=== PATIENT | female | born 1930 ===

== ENCOUNTER 2016-12-04 11:46 | Inpatient (IN) | payer MEDICARE, BC ==
[2016-12-04] MEDS ORDERED: hydrALAZINE IV* 20 MG/ML VIAL IV SLOW PU ONE (13:24)
[2016-12-04] MEDS ORDERED: Ondansetron INJ* 2 MG/ML VIAL IV PRN (13:39)
[2016-12-04] MEDS ORDERED: Acetaminophen TAB* 325 MG PO PRN (13:39)
[2016-12-04] MEDS ORDERED: hydrALAZINE IV* 20 MG/ML VIAL IV SLOW PU PRN (13:49)
--- NOTE | 2016-12-04 18:48 | CONS ---
CONSULTATION REPORT: DATE OF CONSULTATION: 12/04/16 PATIENT OF: Dr. Trimble. HISTORY OF PRESENT ILLNESS: This is an 86-year-old right-handed woman who has new onset of aphasia secondary to a hemorrhagic bleed. She lives in the [facility] for dementia and she can talk and interact, but is forgetful and confused at times, which waxes and wanes and carries a diagnosis of Alzheimer's. Her speech is noted to be more garbled and hesitant than usual with some increased confusion at about 8:15 this morning and she was brought in to the [facility] ER where workup showed a left thalamic bleed and she was transferred to [facility] for further care. PAST MEDICAL HISTORY: Her other medical problem includes longstanding hypertension. PAST SURGICAL HISTORY: No recent surgeries. MEDICATIONS: Include: 1. Aricept 10 mg a day. 2. Metoprolol XL 50 mg daily. 3. Zoloft 25 mg daily. 4. Remeron 7.5 at night. ALLERGIES: She has no known allergies. FAMILY HISTORY: There is no family history for CIPHER EXPERT bleeds. She has been on aspirin at home but this has been stopped. There is no other blood thinner and she has had no known atrial fibrillation before today. They do not know of any other family history for hemorrhagic bleed. REVIEW OF SYSTEMS: She has had some sundowning at her home. She has had some recent hip pain. Negative in all 14 spheres according to the daughter. She has been in recent good health. PHYSICAL EXAMINATION: On exam, temperature 98.9, pulse 73, respirations 40. Blood pressure currently 160/84, when she came in, it was 218/110. She was alert. She thought her birthday was 1937. She did not know her age or where she was. She had general confusion and did not know that one of her friends had and then began thinking about whether the friend's marriage was in trouble, which it had not been. There was a sort of confusional tangential thinking with some hesitancy and some slight word finding difficulty. Much of this was new, although she has a baseline level of confusion. There was trace right-sided facial asymmetry. Rest of cranial nerves II through XII were normal with sharp discs. Motor exam revealed normal tone and strength. There was no pronator drift. Sensation was intact to light touch. Reflexes were 1 and equal. Toes were downgoing. Sensation was grossly intact to light touch. Chest: Clear. Cardiovascular: Regular rate and rhythm. Abdomen soft with positive bowel sounds. DIAGNOSTIC STUDIES/LABORATORY DATA: EKG showed atrial fibrillation, which is a new finding. I reviewed her CT scan, which showed a small left thalamic bleed measured by the radiologist at 1.8 x 1.6 x 1.0 with some mild edema as well. There is significant periventricular and subcortical attenuation most likely secondary to chronic small vessel ischemic disease. Her CBC was normal with normal platelets. INR was normal. Her CMP was normal other than creatinine of 1.1, glucose of 126. IMPRESSION: Megan has a left thalamic bleed possibly secondary to chronic hypertension in the setting of somebody who has longstanding hypertension and evidence on brain CT of small vessel ischemic disease to a probably significant degree. At this time, there is no intervention that is needed neurosurgically and the aspirin has been stopped and she will be observed closely. I discussed that if the bleed got vigorous, it is possible there could be complications including an obstructive hydrocephalus. The daughter at this point would proceed with a REPACKER shunt if it looked like once the acute problem is corrected, the mother would return to close to her baseline and the daughter knows that there are no promises that this would actually happen, but that if we thought there was a decent possibility that depending on the size of the bleed and other factors that the bleed would resolve and that there would be possibly no long-term deficits more than what she has already, that she would proceed with surgery even though there is a DNR in place. If the bleed became a major bleed , she would not be inclined to pursue surgery and she noted this is her initial thinking and she is talking to other family members. At this point, the bleed does not look like a primary ischemic stroke that bled into, but a primarily hemorrhagic stroke. By its location, I do not think that this is likely to be due to an underlying vascular malformation. The daughter would not want to pursue this at this point to look for surgery to fix or address that type of issue; however, as things proceed, we can revisit whether the family would want studies to look for underlying vascular abnormalities. Thank you for sharing her case. [id number]/[facility] #: [id number] AMPARO
--- NOTE | 2016-12-04 18:56 | HP ---
CC: CYNTHIA Torrez * HISTORY AND PHYSICAL: DATE OF ADMISSION: 12/04/16 PRIMARY CARE PROVIDER: CYNTHIA Torrez. CHIEF COMPLAINT: Slurred speech. HISTORY OF PRESENT ILLNESS: Ms. Menchaca is an 86-year-old female who currently is unable to provide any meaningful history due to expressive aphasia, dysarthria, and dementia. The history is obtained from the ER provider at [facility], who spoke with staff at [facility]. The patient, reportedly, at approximately 7:30 a.m., was felt to be normal. At approximately 8:30 a.m. on the day of admission she was found in the parlor after she missed breakfast. At that point she was noted to have slurred speech and perhaps not moving her limbs right and could not walk. She was assisted back to her room and given a meal tray, but did not eat it. The symptoms continued and, therefore, the aide arranged for the patient to be brought to the emergency room by private vehicle. Reportedly, as the patient was leaving [facility], she was improving and seemed to be happy and waved at everybody on her way out. The staff at [facility] indicated that the patient has a history of attention seeking behaviors and it was felt that perhaps that was what was going on this morning. The patient was dropped off in the waiting room of [facility] ER. The import clerk noted that the patient had slurred speech and called a stroke protocol. The patient was brought back immediately where she was noted to be A and O x3, with slurred speech. She was able to get out of the wheelchair by herself and ambulate easily to the bed and climb in. She underwent a CT scan of the brain, which revealed a 1.8 cm left thalamic hemorrhagic infarct. PAST MEDICAL HISTORY: 1. Hypertension. 2. Alzheimer's dementia. PAST SURGICAL HISTORY: Unknown. MEDICATIONS: 1. Imodium 4 mg p.o. q.4 hours p.r.n. loose stool. 2. Guaifenesin 10 mL p.o. q.4 hours p.r.n. cough. 3. MOM 30 mL p.o. daily p.r.n. constipation. 4. Mylanta 30 mL p.o. q.4 hours p.r.n. indigestion. 5. Tylenol 500 mg p.o. q.4 hours p.r.n. pain. 6. Donepezil 10 mg p.o. at bedtime. 7. Aspirin 81 mg p.o. daily. 8. Sertraline 25 mg p.o. daily. 9. Remeron 7.5 mg p.o. at bedtime. 10. Metoprolol XL 50 mg p.o. daily. ALLERGIES: No known drug allergies. FAMILY HISTORY: Unobtainable from the patient due to her dementia. SOCIAL HISTORY: The patient resides at [facility]. Her daughter, Ling, is listed as her healthcare proxy. REVIEW OF SYSTEMS: Unobtainable from the patient due to her dementia, expressive aphasia, and dysarthria. PHYSICAL EXAMINATION GENERAL: The patient is a well-developed elderly female, sitting up in the stretcher, in no acute distress. VITAL SIGNS: Blood pressure 218/110, pulse 73, respirations 14, temp 98.9, O2 sat 100% on room air. HEENT: Pupils are equal. Extraocular muscles are intact. Oropharynx is clear. Oral mucosa is moist. There is no submandibular, cervical or supraclavicular adenopathy. NECK: Thyroid is not enlarged. No thyroid nodules are noted. PULMONARY: Lungs are clear to auscultation bilaterally though she does have wheezing noted at rest. CARDIAC: Normal S1, S2. Heart rate is irregularly irregular, but controlled. ABDOMEN: Bowel sounds present. Abdomen is soft, nontender, nondistended. EXTREMITIES: There is no lower extremity edema. MUSCULOSKELETAL: There is no cyanosis or clubbing of the digits. There is full active range of motion of all 4 extremities. NEUROLOGIC: Cranial nerves II through XII appear to be grossly intact. Sensation is intact to light touch throughout. Strength is 5/5 and symmetric in upper and lower extremities bilaterally. She is dysarthric and appears to have at least moderate expressive aphasia. Additionally, she seems confused. SKIN: Warm and dry. There are no rashes. PSYCH: The patient is alert. DIAGNOSTIC STUDIES/LAB DATA: CT brain reveals a 1.8 cm left thalamic acute hemorrhagic CVA with indentation of the third ventricle. EKG reveals atrial fibrillation with controlled rate. ASSESSMENT AND PLAN: Ms. Menchaca is an 86-year-old female with a known history of hypertension and Alzheimer's dementia, who presented to the [facility] with complaints of slurred speech and found to have an acute hemorrhagic left thalamic CVA. 1. Acute hemorrhagic left thalamic CVA: This is likely on the basis of the patient's chronic hypertension. She had been on an aspirin daily at home. This will obviously be discontinued at this point. The patient will be seen by the Neurology. I did speak with Dr. Lind, who reviewed the images and did not feel that the patient warranted any neurosurgical intervention at this time. The patient will have neuro checks every 2 hours. She could be at risk for developing hydrocephalus if the edema relates to the bleed or the bleed itself worsens leading to further compression of the third ventricle. The patient will have PT, OT, and Speech Therapy ordered as well. It is unclear at this point if the patient will be able to return back to [facility]. A repeat CT scan will be obtained tomorrow morning to ensure that there is no significant progression of her bleed or edema. 2. Atrial fibrillation. This appears to be a new diagnosis for the patient. She is controlled. She takes metoprolol at home. She obviously cannot go on an anticoagulant at this point and likely she is too high risk to ever be on an anticoagulant related to her AFib. 3. Hypertension. The patient's blood pressure is uncontrolled at this point. She will have p.r.n. hydralazine for systolic blood pressures greater than 170. She will continue on her usual dose of metoprolol and likely will need to add another agent to get her blood pressure under improved control. 4. DVT prophylaxis. According to the Adult Thrombosis Prophylaxis Risk Factor Assessment Guide, the patient has a total risk factor score of 3, making her high risk. SCDs alone will be utilized as DVT prophylaxis given her acute hemorrhagic CVA. 5. Code status is DNR and the patient's daughter, Ling, is her healthcare proxy. TIME SPENT: Sixty-five minutes were spent admitting this patient. [id number]/[facility] #: [id number] AMPARO
[2016-12-04] MEDS: Donepezil TAB* 5 MG PO SCH (21:22)
[2016-12-04] MEDS: Mirtazapine TAB* 15 MG PO SCH (21:23)
[2016-12-05 06:00] LABS: Comments Flag Yes; Hematocrit 30 % (35-47); Hemoglobin 8.9 g/dl (12.0-16.0); Mean Corpuscular HGB Conc 30 g/dl (31-36); Mean Corpuscular Hemoglobin 19 pg (27-31); Mean Corpuscular Volume 63 fL (80-97); Mean Platelet Volume 9 um3 (7.4-10.4); Red Blood Count 4.79 10^6/ul (4.0-5.4); Red Cell Distribution Width 20 % (10.5-15); White Blood Count 6.2 10^3/ul (3.5-10.8)
[2016-12-05 06:29] LABS: BUN/Creatinine Ratio 20.6 (8-20); Calcium 8.9 mg/dL (8.6-10.3); EGFR African American 66.4 (>60); EGFR Non-African American 51.6 (>60)
[2016-12-05] MEDS ORDERED: Influenza VAC *QUAD* 2017-18* 0.5 ML SYRINGE IM ONE (09:00)
--- NOTE | 2016-12-05 09:17 | RAD ---
Indication: Follow-up thalamic hemorrhage. CT brain was performed without IV contrast and compared to previous exam dated December 04, 2016. Again noted is a hyperdense mass in the left thalamus consistent with thalamic hemorrhage. Adjacent edema is noted. The overall size of the hemorrhage is not significantly changed. Periventricular signal abnormality consistent with chronic ischemic changes. Mastoid air cells and paranasal sinuses are otherwise unremarkable. IMPRESSION: Left thalamic hemorrhage unchanged from previous exam of December 04, 2016.
[2016-12-05] MEDS: Sertraline* 25 MG TAB PO SCH (10:19)
[2016-12-05] MEDS: Metoprolol Succinate XL TAB* 50 MG PO SCH (10:20)
--- NOTE | 2016-12-05 13:59 | PN ---
Subjective Date of Service: 12/05/16 Interval History: Pt is feeling ok but has noted to be agitated this afternoon. The patient is unable to give any reliable information. Objective Active Medications: Acetaminophen (Tylenol Tab*) 650 mg PO Q4H PRN PRN Reason: PAIN Donepezil HCl (Aricept Tab*) 10 mg PO BEDTIME [facility] Last Admin: 12/04/16 21:22 Dose: 10 mg Hydralazine HCl (Apresoline Iv*) 5 mg IV SLOW PU Q6H PRN PRN Reason: SBP>170 Metoprolol Succinate (Toprol Xl Tab*) 50 mg PO DAILY [facility] Last Admin: 12/05/16 10:20 Dose: 50 mg Mirtazapine (Remeron Tab*) 7.5 mg PO BEDTIME [facility] Last Admin: 12/04/16 21:23 Dose: 7.5 mg Ondansetron HCl (Zofran Inj*) 4 mg IV Q6H PRN PRN Reason: NAUSEA Sertraline HCl (Zoloft*) 25 mg PO DAILY [facility] Last Admin: 12/05/16 10:19 Dose: 25 mg Vital Signs 12/04/16 12/04/16 12/04/16 14:23 15:43 19:30 Temperature 98.5 F Pulse Rate 80 Respiratory 16 34 Rate Blood Pressure 160/84 146/58 (mmHg) O2 Sat by Pulse 99 Oximetry 12/04/16 12/04/16 12/05/16 19:32 23:44 03:28 Temperature 98.6 F 98.3 F 98.6 F Pulse Rate 76 79 80 Respiratory 20 40 24 Rate Blood Pressure 160/80 154/65 143/71 (mmHg) O2 Sat by Pulse 97 95 96 Oximetry 12/05/16 12/05/16 12/05/16 07:37 08:00 11:33 Temperature 97.7 F 98.4 F Pulse Rate 63 69 Respiratory 20 24 20 Rate Blood Pressure 146/58 169/65 (mmHg) O2 Sat by Pulse 94 98 Oximetry 12/05/16 13:45 Temperature 98.3 F Pulse Rate 92 Respiratory 32 Rate Blood Pressure 186/83 (mmHg) O2 Sat by Pulse Oximetry Oxygen Devices in Use Now: None Appearance: Elderly female sitting on the edge of the bed, agitated about a medicine cup on her table. Eyes: No Scleral Icterus Ears/Nose/Mouth/Throat: Mucous Membranes Moist Respiratory: Symmetrical Chest Expansion and Respiratory Effort, Clear to Auscultation Cardiovascular: NL Sounds; No Murmurs; No JVD, No Edema, - - irregularly irregular, controlled rate Abdominal: NL Sounds; No Tenderness; No Distention Extremities: No Clubbing, Cyanosis Skin: No Rash or Ulcers, No Nodules or Sclerosis Neurological: - - confused, agtiated, + expressive aphasia and mild dysarthria Result Diagrams: 12/05/16 05:33 12/05/16 05:33 Assess/Plan/Problems-Billing Ms Menchaca is an 86 yo F who has a h/o HTN and dementia who presented to the ER at [facility] with c/o dysarthria and 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 - Patient Problems (1) Hemorrhagic cerebrovascular accident (CVA) Current Visit: Yes Status: Acute Code(s): I61.9 - NONTRAUMATIC INTRACEREBRAL HEMORRHAGE, UNSPECIFIED SNOMED Code(s): 096623313 Comment: The patient has a L thalamic hemorrhagic CVA. Unchanged on CT this AM. Her expressive aphasia seems worse today but she also seems more confused- possibly with delirium. I think she is going to need STR and not be able to return to the [facility] from this hospitalization. Continue PT/OT/speech. No ASA. Will aim for improved BP control. (2) HTN (hypertension) Current Visit: Yes Status: Acute Code(s): I10 - ESSENTIAL (PRIMARY) HYPERTENSION SNOMED Code(s): 49185050 Comment: BP needs improved control. Will add amlodipine 5mg daily. Monitor the pressures. (3) Afib Current Visit: Yes Status: Acute Code(s): I48.91 - UNSPECIFIED ATRIAL FIBRILLATION SNOMED Code(s): 07906905 Comment: Pt remains in controlled afib. No anticoagulation or ASA given the ICH. (4) Dementia Current Visit: Yes Status: Acute Code(s): F03.90 - UNSPECIFIED DEMENTIA WITHOUT BEHAVIORAL DISTURBANCE SNOMED Code(s): 00028495 Comment: I suspect the patient has some delirium currently given her agitation. Will trial low dose haldol. (5) DVT prophylaxis Current Visit: Yes Status: Acute Code(s): SQN8299 - SNOMED Code(s): 711369831 Comment: SCDs/ambulation (6) DNR (do not resuscitate) Current Visit: Yes Status: Acute
[2016-12-05] MEDS ORDERED: Haloperidol INJ IV/IM* 5 MG/ML AMP IV SLOW PU PRN (14:15)
[2016-12-05] MEDS ORDERED: amLODIPine TAB* 5 MG PO SCH (15:00)
--- NOTE | 2016-12-05 16:13 | RAD ---
Indication: Fever, aspiration. Single frontal view of the chest performed at 1606 hours was reviewed. No prior study is available. No mediastinal shift is noted. Cardiomegaly is noted. Lung guerrero are clear. IMPRESSION: NO ACTIVE CARDIOPULMONARY DISEASE IS NOTED.
--- NOTE | 2016-12-05 17:37 | RAD ---
Indication: Hemorrhagic CVA. Comparison: [address] of the same date. Technique: Noncontrast CT vertex of skull through foramen magnum. Report: Unchanged 1.9 cm maximum dimension intra-axial hemorrhage at the LEFT thalamus with mild mass effect on the third ventricle without change. No new intra or extra-axial hemorrhage evident. Mild prominence of the cerebral sulci and ventricles reflecting atrophy. Patent basal cisterns. Decreased density in the periventricular and subcortical white matter while non-specific is most likely due to chronic microangiopathy. Negative for fracture or suspicious focal calvarial or skull base lesion. Clear visualized paranasal sinuses and mastoid air spaces. Negative for scalp hematoma. IMPRESSION: 1. Unchanged hyperdense intra-axial hematoma at the LEFT thalamus with mild mass effect on the third ventricle. Negative for resulting hydrocephalus. 2. Mild involutional change and stigmata of chronic small vessel ischemic disease.
--- NOTE | 2016-12-05 18:49 | PN ---
NEUROLOGIC FOLLOWUP NOTE: DATE OF FOLLOWUP/DICTATION: 12/05/16 PATIENT OF: Dr. Tribmle. HISTORY: She is unable to give any acute history since she remains quite confused with changes documented in history. MEDICATIONS: Her medications are unchanged, include: 1. Zoloft 25 mg daily. 2. Remeron 7.5 mg at bedtime. 3. Toprol 50 mg daily. 4. Aricept 10 mg at bedtime. There has been no clinical changes. Temperature 98.4, pulse 69, respirations 20 , blood pressure 169/65. She is alert, but says she is 29 today. She does not know where she is. She tends to perseverate after I asked her age, she said 29 and then was talking about other numbers, random thoughts. She did not answer questions appropriately, but with nonsensical statements. She could sporadically follow one- step commands. She had a slight pronator drift on the right side today and when I asked her to squeeze both hands, I needed to coax her and repeat the request, but she tended to do it more readily on the left than the right and there may have been some mild, possibly trace weakness in the right raftsman. Cranial nerves II through XII were intact. Strength in legs appeared full, but she had limited cooperation due to her comprehension. Chest clear. Cardiovascular: Regular rate and rhythm. Abdomen is soft with positive bowel sounds. LABORATORY DATA: I reviewed her repeat CT scan today, which shows the left thalamic bleed, but without any change in size and no change in ventricular size. Her CBC today was normal other than a hematocrit of 30. Her BMP was normal today other than a creatinine of 1.02 and a glucose of 101. Megan' left thalamic bleed has remained stable since yesterday and this is a good sign clinically. From my evaluation today, her speech and comprehension is decreased compared to yesterday. There may be some fluctuations throughout the day or it may be that there is a little bit of associated swelling not well seen on CT scan associated with the bleed that she is a little bit worse, but overall that there is no major changes in the CAT scan is reassuring. It would be important to make sure her home would still be able to take care of somebody who will be at least for several weeks more confused, with more limited speech than before and if not, to make appropriate placement. I would also follow up her CAT scan in a couple of days' time to make sure there is no interval change and sooner for problems. Thank you for sharing her case. [id number]/[facility] #: [id number] AMPARO
[2016-12-05] MEDS ORDERED: NS 0.9% 1000 ML* 1,000 ML IV SCH (19:00)
[2016-12-05] MEDS ORDERED: Zosyn per Pharmacy* NOTE FOLLOW UP SCH (19:00)
--- NOTE | 2016-12-05 19:47 | RAD ---
Indication: Altered mental status. No longer verbally responding. Hemorrhagic CVA. Comparison: 1626 hours exam of the same date. Technique: Noncontrast CT vertex of skull through foramen magnum. Report: Unchanged 1.9 cm maximum dimension intra-axial hemorrhage at the LEFT thalamus with mild mass effect on the third ventricle without change. No new intra or extra-axial hemorrhage evident. Mild prominence of the cerebral sulci and ventricles reflecting atrophy. Patent basal cisterns. Decreased density in the periventricular and subcortical white matter while non-specific is most likely due to chronic microangiopathy. Negative for fracture or suspicious focal calvarial or skull base lesion. Clear visualized paranasal sinuses and mastoid air spaces. Negative for scalp hematoma. IMPRESSION: 1. Unchanged hyperdense intra-axial hematoma at the LEFT thalamus with mild mass effect on the third ventricle. Negative for resulting hydrocephalus. 2. Mild involutional change and stigmata of chronic small vessel ischemic disease.
[2016-12-05 19:51] LABS: Hematocrit 33 % (35-47); Hemoglobin 9.7 g/dl (12.0-16.0); Mean Corpuscular HGB Conc 29 g/dl (31-36); Mean Corpuscular Hemoglobin 19 pg (27-31); Mean Platelet Volume 8 um3 (7.4-10.4); Red Blood Count 5.22 10^6/ul (4.0-5.4); Red Cell Distribution Width 20 % (10.5-15); White Blood Count 9.8 10^3/ul (3.5-10.8)
[2016-12-05 20:04] LABS: Comments Flag Yes; Mean Corpuscular Volume 64 fL (80-97)
[2016-12-05 20:05] LABS: BUN/Creatinine Ratio 17.5 (8-20); EGFR African American 65.7 (>60); EGFR Non-African American 51.1 (>60); Potassium 4.6 mmol/L (3.5-5.0)
[2016-12-05] MEDS ORDERED: Acetaminophen SUPP* 650 MG SUPP PR PRN (20:57)
[2016-12-05] MEDS: Mirtazapine TAB* 15 MG PO SCH (21:03)
[2016-12-05] MEDS: Donepezil TAB* 5 MG PO SCH (21:03)
[2016-12-05 23:43] LABS: Urine Bacteria Absent (Absent); Urine Bilirubin Negative (Negative); Urine Glucose Negative (Negative); Urine Nitrite Negative (Negative)
[2016-12-06] MEDS: ZOSYN 3.375 GM Q8H per EXTENDED INFUSION IVPB SCH ×6 (00:06→17:28)
--- NOTE | 2016-12-06 07:51 | PN ---
Subjective Date of Service: 12/06/16 Interval History: Events from last evening and night noted. This AM the patient awakened to me calling her name. She stated yes to wanting a drink when I asked her if she was thirsty. She waved to her daughter and son-in-law who were present in the room this AM. She said no to being in pain. She kept pointing to my shirt and trying to say something but was unable to make herself clear. Objective Active Medications: Acetaminophen (Tylenol Tab*) 650 mg PO Q4H PRN PRN Reason: PAIN Acetaminophen (Tylenol Supp*) 650 mg PA Q4H PRN PRN Reason: FEVER/PAIN Last Admin: 12/05/16 23:12 Dose: 650 mg Amlodipine Besylate (Norvasc Tab*) 5 mg PO DAILY [facility] Last Admin: 12/05/16 14:25 Dose: 5 mg Donepezil HCl (Aricept Tab*) 10 mg PO BEDTIME [facility] Last Admin: 12/05/16 21:03 Dose: Not Given Hydralazine HCl (Apresoline Iv*) 5 mg IV SLOW PU Q6H PRN PRN Reason: SBP>170 Sodium Chloride (Ns 0.9% 1000 Ml*) 1,000 mls @ 100 mls/hr IV PER RATE [facility] Last Admin: 12/05/16 20:00 Dose: 100 mls/hr Piperacillin Sod/Tazobactam (Sod 3.375 gm/ Sodium Chloride) 100 mls @ 25 mls/ hr IVPB Q8H [facility] Last Admin: 12/06/16 00:06 Dose: 25 mls/hr Metoprolol Succinate (Toprol Xl Tab*) 50 mg PO DAILY [facility] Last Admin: 12/05/16 10:20 Dose: 50 mg Mirtazapine (Remeron Tab*) 7.5 mg PO BEDTIME [facility] Last Admin: 12/05/16 21:03 Dose: Not Given Ondansetron HCl (Zofran Inj*) 4 mg IV Q6H PRN PRN Reason: NAUSEA Last Admin: 12/05/16 15:26 Dose: 4 mg Pharmacy Consult (Zosyn Per Pharmacy*) 1 note FOLLOW UP .ZOSYN PER PHARMACY [facility] Sertraline HCl (Zoloft*) 25 mg PO DAILY [facility] Last Admin: 12/05/16 10:19 Dose: 25 mg Vital Signs 09/06/17 09/06/17 09/06/17 08:00 11:33 13:45 Temperature 98.4 F 98.3 F Pulse Rate 69 92 Respiratory 24 20 32 Rate Blood Pressure 169/65 186/83 (mmHg) O2 Sat by Pulse 98 Oximetry 12/05/16 12/05/16 12/05/16 15:26 20:00 20:14 Temperature 101.1 F 101.7 F Pulse Rate 108 98 Respiratory 16 20 20 Rate Blood Pressure 166/95 139/51 (mmHg) O2 Sat by Pulse 92 87 Oximetry 12/05/16 12/06/16 23:37 03:07 Temperature 100.1 F 98.6 F Pulse Rate 84 71 Respiratory 24 28 Rate Blood Pressure 130/43 106/40 (mmHg) O2 Sat by Pulse 99 99 Oximetry Oxygen Devices in Use Now: Nasal Cannula - 2L Appearance: Elderly female sleeping in bed, awakens to me calling her name, NAD Eyes: No Scleral Icterus Ears/Nose/Mouth/Throat: Mucous Membranes Moist Respiratory: Symmetrical Chest Expansion and Respiratory Effort, - - bibasilar crackles Cardiovascular: NL Sounds; No Murmurs; No JVD, No Edema, - - irregularly irregular, controlled rate Abdominal: NL Sounds; No Tenderness; No Distention Extremities: No Clubbing, Cyanosis Skin: No Rash or Ulcers, No Nodules or Sclerosis Neurological: - - + significant expressive aphasia and mild-moderate dysarthria , moves all 4 limbs Result Diagrams: 12/05/16 19:35 12/05/16 19:35 Assess/Plan/Problems-Billing Ms Menchaca is an 86 yo F who has a h/o HTN and dementia who presented to the ER at [facility] with c/o dysarthria and 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 - Patient Problems (1) Hemorrhagic cerebrovascular accident (CVA) Current Visit: Yes Status: Acute Code(s): I61.9 - NONTRAUMATIC INTRACEREBRAL HEMORRHAGE, UNSPECIFIED SNOMED Code(s): 442039709 Comment: The patient has a L thalamic hemorrhagic CVA. Yesterday the patient' s mental status changed significantly. She ended up having 4 CTs in about 24hr due to concerns of worsening bleed/development of hydrocephalus. Last evening the patient was unresponsive to anything other deep sternal rub. This AM her mental status is much improved and she is much less agitated than she was yesterday at the time of my evaluation. Continue PT/OT/speech. She will likely need STR-if she worsens again consider palliative care. I have discussed my concerns and recommendations with the patient's daughter. (2) HTN (hypertension) Current Visit: Yes Status: Acute Code(s): I10 - ESSENTIAL (PRIMARY) HYPERTENSION SNOMED Code(s): 91052105 Comment: BP this AM is low normal. I will put hold parameters on the amlodipine started yesterday. Will continue to follow. (3) Afib Current Visit: Yes Status: Acute Code(s): I48.91 - UNSPECIFIED ATRIAL FIBRILLATION SNOMED Code(s): 25735905 Comment: Pt remains in controlled afib. No anticoagulation or ASA given the ICH. (4) Dementia Current Visit: Yes Status: Acute Code(s): F03.90 - UNSPECIFIED DEMENTIA WITHOUT BEHAVIORAL DISTURBANCE SNOMED Code(s): 37553661 Comment: Continue aricept. She seems much less agitated today. Continue to monitor. (5) DVT prophylaxis Current Visit: Yes Status: Acute Code(s): THK7831 - SNOMED Code(s): 978830993 Comment: SCDs/ambulation (6) DNR (do not resuscitate) Current Visit: Yes Status: Acute
--- NOTE | 2016-12-06 08:13 | RAD ---
INDICATION: Altered mental status. COMPARISON: Comparison is made with prior studies from December 05, 2016. TECHNIQUE: Contiguous axial sections of the brain were obtained from the skull base to the vertex without contrast. FINDINGS: The ventricles, cisterns and sulci are enlarged consistent with diffuse atrophy. There are multiple focal areas of decreased density in the subcortical and periventricular white matter suggestive of moderate to severe chronic small vessel ischemic changes. Again note is made of a focal area of hemorrhage present within the left thalamus measuring 1.7 x 1.5 cm in size which is unchanged from the prior exam. This causes mild mass effect on the third ventricle. No hydrocephalus is seen. No significant focal osseous abnormality is seen. The visualized portion of the paranasal sinuses and mastoid air cells appear clear. IMPRESSION: 1.7 CM AREA OF HEMORRHAGE IN THE LEFT THALAMUS WITH MILD MASS EFFECT, UNCHANGED.
[2016-12-06] MEDS: amLODIPine TAB* 5 MG PO SCH (08:59)
[2016-12-06] MEDS: Metoprolol Succinate XL TAB* 50 MG PO SCH (09:05)
[2016-12-06] MEDS: Sertraline* 25 MG TAB PO SCH (09:05)
[2016-12-06] MEDS: NS 0.9% 1000 ML* 1,000 ML IV SCH (10:58)
[2016-12-06] MEDS: Mirtazapine TAB* 15 MG PO SCH (21:02)
[2016-12-06] MEDS: Donepezil TAB* 5 MG PO SCH (21:02)
[2016-12-07] MEDS: ZOSYN 3.375 GM Q8H per EXTENDED INFUSION IVPB SCH ×4 (00:05→08:04)
[2016-12-07] MEDS: NS 0.9% 1000 ML* 1,000 ML IV SCH (02:54)
[2016-12-07] MEDS: Metoprolol Succinate XL TAB* 50 MG PO SCH (08:02)
[2016-12-07] MEDS: amLODIPine TAB* 5 MG PO SCH (08:03)
[2016-12-07] MEDS: Sertraline* 25 MG TAB PO SCH (08:03)
--- NOTE | 2016-12-07 11:16 | PN ---
Subjective Date of Service: 12/07/16 Interval History: Ms. Menchaca denies complaint today. She specifically denies chest pain, SOB, nausea, or abdominal pain. Objective Active Medications: Acetaminophen (Tylenol Tab*) 650 mg PO Q4H PRN Acetaminophen (Tylenol Supp*) 650 mg MS Q4H PRN Amlodipine Besylate (Norvasc Tab*) 5 mg PO DAILY [facility] Donepezil HCl (Aricept Tab*) 10 mg PO BEDTIME [facility] Hydralazine HCl (Apresoline Iv*) 5 mg IV SLOW PU Q6H PRN Sodium Chloride (Ns 0.9% 1000 Ml*) 1,000 mls @ 60 mls/hr IV PER RATE [facility] Metoprolol Succinate (Toprol Xl Tab*) 50 mg PO DAILY [facility] Mirtazapine (Remeron Tab*) 7.5 mg PO BEDTIME [facility] Ondansetron HCl (Zofran Inj*) 4 mg IV Q6H PRN Pharmacy Consult (Zosyn Per Pharmacy*) 1 note FOLLOW UP .ZOSYN PER PHARMACY [facility] Sertraline HCl (Zoloft*) 25 mg PO DAILY [facility] Vital Signs 12/06/16 12/06/16 12/06/16 11:24 15:44 19:42 Temperature 97.9 F 97.9 F 97.9 F Pulse Rate 67 73 73 Respiratory 18 19 19 Rate Blood Pressure 106/38 120/56 132/59 (mmHg) O2 Sat by Pulse 100 98 99 Oximetry 12/06/16 12/07/16 12/07/16 20:00 00:17 03:48 Temperature 99.7 F 98.7 F Pulse Rate 80 87 Respiratory 36 32 32 Rate Blood Pressure 133/56 138/56 (mmHg) O2 Sat by Pulse 97 100 Oximetry 12/07/16 12/07/16 07:19 07:41 Temperature 97.7 F Pulse Rate 63 Respiratory 18 28 Rate Blood Pressure 130/71 (mmHg) O2 Sat by Pulse 100 Oximetry Oxygen Devices in Use Now: None - 2L Appearance: Female lying in bed in NAD Eyes: No Scleral Icterus Ears/Nose/Mouth/Throat: Mucous Membranes Moist Neck: Trachea Midline Respiratory: Symmetrical Chest Expansion and Respiratory Effort, Clear to Auscultation Cardiovascular: NL Sounds; No Murmurs; No JVD, No Edema Abdominal: NL Sounds; No Tenderness; No Distention Lymphatic: No Cervical Adenopathy Extremities: No Edema Skin: No Rash or Ulcers Neurological: Alert and Oriented x 3, - - Weak but equal strength in all extremities Nutrition: Taking PO's Result Diagrams: 12/05/16 19:35 12/05/16 19:35 Microbiology and Other Data: Microbiology 12/05/16 23:30 Urine Culture - Final Urine No Growth (<1,000 CFU/mL) 12/05/16 19:35 Aerobic Blood Culture - Preliminary No Source Provided No Growth Day 1 Anaerobic Blood Culture - Preliminary No Growth Day 1 Assess/Plan/Problems-Billing Ms Menchaca is an 86 yo F who has a h/o HTN and dementia who presented to the ER at [place] [facility] with c/o dysarthria and 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 - Patient Problems (1) Hemorrhagic cerebrovascular accident (CVA) Comment: - Patient remains alert today. She has had a L thalamic hemorrhagic CVA. On 12/04 the patient's mental status changed significantly. She ended up having 4 CTs in about 24hr due to concerns of worsening bleed/development of hydrocephalus. However, her mental status improved as of yesterday. - Continue PT/OT/speech. Plan for STR. (2) Dementia Comment: Continue aricept. Continue to monitor. (3) Afib Comment: Pt remains in controlled afib. No anticoagulation or ASA given the ICH. (4) HTN (hypertension) Comment: BP this AM is low normal. I will put hold parameters on the amlodipine started yesterday. Will continue to follow. (5) DVT prophylaxis Comment: SCDs/ambulation (6) DNR (do not resuscitate) Status and Disposition: Inpatient. Discharge to [facility].
[2016-12-07 11:34] VITALS: BP 117/37
--- NOTE | 2016-12-07 13:58 | DS ---
CC: CYNTHIA Torrez.* HOSPITAL MEDICINE DISCHARGE SUMMARY: DATE OF ADMISSION: 12/04/16 DATE OF DISCHARGE: 12/07/16 PRIMARY CARE PHYSICIAN: CYNTHIA Torrez. ATTENDING PHYSICIAN: Dr. Lorelei Trimble* (dictation provided by Brenda Yin NP) . PRIMARY DIAGNOSIS: Left thalamic hemorrhagic cerebrovascular accident. SECONDARY DIAGNOSES: 1. Hypertension. 2. Alzheimer's dementia. MEDICATIONS AT THE TIME OF DISCHARGE: 1. Imodium 4 mg p.o. q. 4 hours p.r.n. 2. Guaifenesin 10 mL p.o. q. 4 hours p.r.n. 3. Milk of magnesia 30 mL p.o. daily p.r.n. 4. Mylanta 30 mL p.o. q. 4 hours p.r.n. 5. Tylenol 500 mg p.o. q. 4 hours p.r.n. 6. Donepezil 10 mg p.o. at bedtime. 7. Sertraline 25 mg p.o. daily. 8. Remeron 7.5 mg p.o. at bedtime. 9. Metoprolol XL 50 mg p.o. daily. HOSPITAL COURSE: Ms. Menchaca is an 86-year-old female with a past medical history of dementia, who resides at the [facility] and was transported from [facility] on 12/04/16 after having slurred speech and being found to have a 1.8-cm left thalamic hemorrhagic infarct. Please see dictated H and P from Lorelei Trimble DO, for complete details. In brief, the patient was noted to have slurred speech and inability to walk. Again CT determined that she had an acute hemorrhagic left thalamic CVA. Ms. Menchaca was admitted to the hospital. She was seen in consultation with Dr. Conner Ann from Neurology. There was no neurosurgical intervention indicated. Plans were to discontinue aspirin and to observe closely. The patient had a follow up CT on 12/05/16, which showed unchanged hematoma on the left thalamus. Through the day on 12/05/16, patient became agitated with altered mental status. She ultimately underwent 2 additional CTs of the brain. The first one in the evening on 12/05/16 again showed no change in the hematoma and the repeat one branch mechanic 12/06/16 again showed no change. On 12/06/16, the patient's mental status has returned back to her baseline. She continues to have expressive aphasia and some slurred speech; however, she is moving all extremities equally and acting appropriately and at her baseline per family. The patient remains well today on 12/07/16 and plans for her to be transferred to [facility] for subacute rehab in hopes that she can return to [facility] for independent living. Ms. Menchaca was medically stable for discharge to [facility]. DISPOSITION: [facility]. DIET: Low salt. ACTIVITY: As tolerated. FOLLOWUP PLANS: Please follow up with [facility]IL at the time of discharge from [facility]. TIME SPENT: Approximately 60 minutes was spent in the discharge of this patient ; more than half the time was spent with the patient at the bedside, reviewing the events leading up to this hospitalization with her and then over the phone with the daughter, performing the physical examination, and reviewing the plan of care. BRENDA YIN NP [id number]/[facility] #: [id number] [place]
== END 2016-12-07 14:00 | disposition home or self-care (01) | DRG 66 ==
LOC: MEDTELE 13:03
PROVIDERS: ADMIT Hospitalist; ATTEND Hospitalist
PROC: 3E0234Z Introduction of Serum, Toxoid and Vaccine into Muscle, Percutaneous Approach (ICD-10-PCS; principal; 2016-12-05)
DX: I62.9 Nontraumatic intracranial hemorrhage, unspecified (principal); R47.01 Aphasia; G30.9 Alzheimer's disease, unspecified; I48.91 Unspecified atrial fibrillation; F02.80 Dementia in other diseases classified elsewhere, unspecified severity, without behavioral disturbance, psychotic disturbance, mood disturbance, and anxiety; I10 Essential (primary) hypertension; R41.82 Altered mental status, unspecified; R47.1 Dysarthria and anarthria; Z66 Do not resuscitate; Z23 Encounter for immunization
CPT/HCPCS: 36415; 70450; 71010; 80048; 81003; 81015; 85025; 85027; 87040; 87086; 90686; 93005; A9270-GY; J0360; J1630; J2405; J2543